=== PATIENT | female | born 1945 | race Caucasian/White ===

== ENCOUNTER 2018-03-28 19:14 | Inpatient (IN) | payer OTHER ==
[~2018-03-28] VITALS: Ht 177.8 cm; Wt 113.4 kg
[~2018-03-28 19:14] MED LIST: ASPI-515; ATOR40TA; BUPR-173 PO; GABAPENTIN PO; GEMFIBROZIL PO; GINK60CA PO; HYDR-3307 PO; IRON1CAP3; LOSARTAN PO; MAGN400O7 PO; METF500T5 PO; METFORMIN PO; METH750T87 PO; MULT1CAP19 PO; SENN1TAB7 PO; ST. JOHN'S WORT PO; TIZA4CAP2; TRAM-385 PO; TRAZODONE PO; VENLAFAXINE PO; [UNRECOGNIZED DRUG - OTHER] PO
[2018-03-28] MEDS ORDERED: TRAZ150T62 PO (19:59)
[2018-03-28] MEDS ORDERED: MELO15TA24 PO (19:59)
[2018-03-28] MEDS ORDERED: PROMETHAZINE 25 MG/ML, 1ML IM ONE (20:00)
[2018-03-28] MEDS ORDERED: SODIUM CHLORIDE 0.9% 1,000ML IVBOLUS ONE ×2 (20:00→22:30)
[2018-03-28] MEDS ORDERED: GABA300C10 PO (20:04)
[2018-03-28] MEDS ORDERED: PROMETHAZINE 25 MG/ML, 1ML ONE (20:07)
[2018-03-28 20:14] LABS: MEAN CORPUSCULAR HGB CONC 33.9 g/dL (32.4-35.8); MEAN CORPUSCULAR VOLUME 91.4 fL (80-100); MEAN PLATELET VOLUME 8.4 fL (7.4-10.4); PLATELET COUNT 343 x10^3/uL (130-400); RED BLOOD COUNT 5.22 x10^6/uL (3.82-5.3); RED CELL DISTRIBUTION WIDTH 13.1 % (9.6-15.2)
[2018-03-28 20:19] LABS: PROTHROMBIN TIME 10.3 Seconds (9.6-11.5)
[2018-03-28 20:23] LABS: ALANINE AMINOTRANSFERASE 15 U/L (12-78); ALBUMIN 3.9 g/dL (3.4-5.0); ANION GAP 11 mmol/L (5-15); CALCIUM 10.5 mg/dL (8.5-10.1); CHLORIDE 100 mmol/L (98-107)
[2018-03-28 20:26] LABS: ALKALINE PHOSPHATASE 109 U/L (45-117); BILIRUBIN,TOTAL 0.5 mg/dL (0.2-1.0); TOTAL PROTEIN 8.3 g/dL (6.4-8.2)
[2018-03-28] MEDS ORDERED: LISI-170 PO (20:32)
[2018-03-28 20:38] LABS: BASOPHILS # (AUTO) 0.15 x10^3/uL (0-0.1); BASOPHILS % (AUTO) 1 % (0-1); EOSINOPHILS # (AUTO) 0.07 x10^3/uL (0-0.4); EOSINOPHILS % (AUTO) 0 % (1-7); LYMPHOCYTES % (AUTO) 11 % (22-44); MD SCAN; MONOCYTES # (AUTO) 1.11 x10^3/uL (0.2-0.8); MONOCYTES % (AUTO) 6 % (2-9); NEUTROPHILS # (AUTO) 14.87 x10^3/uL (1.8-6.8); NEUTROPHILS % (AUTO) 82 % (42-75)
[2018-03-28 21:59] LABS: MICROSCOPIC AUTO
[2018-03-28 22:04] LABS: CULTURE INDICATED? YES
[2018-03-28] MEDS ORDERED: CIPROFLOXACIN/PMX 400MG/200ML 200 ML IV ONE (22:30)
[2018-03-28] MEDS ORDERED: METRONIDAZOLE PMX 500MG/100ML 100 ML IV ONE (22:30)
[2018-03-28] MEDS ORDERED: METRONIDAZOLE PMX 500MG/100ML 100 ML ONE (22:35)
[2018-03-28] MEDS ORDERED: CIPROFLOXACIN/PMX 400MG/200ML 200 ML ONE (22:36)
[2018-03-28] MEDS ORDERED: BISACODYL 10 MG SUPP PR PRN (23:30)
[2018-03-28] MEDS ORDERED: ONDANSETRON 2MG/ML, 2ML IVPush PRN (23:30)
[2018-03-28] MEDS ORDERED: ENALAPRILAT 1.25 MG/ML, 2ML IVPush PRN (23:30)
[2018-03-28] MEDS ORDERED: hydrALAzine 20 MG/ML, 1ML IVPush PRN (23:30)
[2018-03-28] MEDS ORDERED: DOCUSATE 100 MG CAPSULE PO PRN (23:30)
[2018-03-28] MEDS ORDERED: HYDROcodone/APAP 5/325 TABLET PO PRN (23:30)
[2018-03-28] MEDS ORDERED: ONDANSETRON ODT 4 MG PO PRN (23:30)
[2018-03-28 23:53] VITALS: BP 130/76
[2018-03-29] MEDS: SODIUM CHLORIDE 0.9% 1,000 ML IV SCH ×2 (00:28→09:24)
[2018-03-29] MEDS ORDERED: TRAZODONE 150MG TABLET PO SCH ×2 (00:30→21:00)
[2018-03-29] MEDS: metroNIDAZOLE 500 MG TABLET PO SCH ×2 (00:47→09:24)
[2018-03-29] MEDS: HEPARIN 5,000 UNITS/ML, 1ML SQ SCH ×2 (00:48→09:24)
[2018-03-29 02:24] VITALS: BP 107/56
[2018-03-29 05:48] LABS: ANION GAP 8 mmol/L (5-15); CALCIUM 8.6 mg/dL (8.5-10.1); CHLORIDE 105 mmol/L (98-107)
[2018-03-29 05:50] LABS: BASOPHILS # (AUTO) 0.04 x10^3/uL (0-0.1); BASOPHILS % (AUTO) 1 % (0-1); EOSINOPHILS % (AUTO) 1 % (1-7); LYMPHOCYTES # (AUTO) 1.79 x10^3/uL (1-3.4); LYMPHOCYTES % (AUTO) 22 % (22-44); MD NO; MEAN CORPUSCULAR HEMOGLOBIN 30.9 pg (27.0-34.8); MEAN CORPUSCULAR VOLUME 90.9 fL (80-100); MEAN PLATELET VOLUME 7.8 fL (7.4-10.4); MONOCYTES # (AUTO) 0.51 x10^3/uL (0.2-0.8); MONOCYTES % (AUTO) 6 % (2-9); NEUTROPHILS # (AUTO) 5.88 x10^3/uL (1.8-6.8); NEUTROPHILS % (AUTO) 71 % (42-75); PLATELET COUNT 218 x10^3/uL (130-400); RED BLOOD COUNT 3.93 x10^6/uL (3.82-5.3); RED CELL DISTRIBUTION WIDTH 12.8 % (9.6-15.2)
[2018-03-29 05:51] LABS: CREATININE 1.23 mg/dL (0.55-1.02)
[2018-03-29 06:46] VITALS: BP 104/58
[2018-03-29] MEDS ORDERED: GABAPENTIN 300 MG CAPSULE PO SCH (09:00)
[2018-03-29] MEDS ORDERED: OMEPRAZOLE 20 MG CAPSULE.DR PO SCH (09:30)
[2018-03-29] MEDS ORDERED: CIPROFLOXACIN/PMX 400MG/200ML 200 ML IV SCH (10:30)
[2018-03-29 12:22] VITALS: BP 107/62
[2018-03-29] MEDS ORDERED: NITR100C56 PO (13:57)
[2018-03-29] MEDS ORDERED: FAMOTIDINE 20 MG TABLET PO SCH (21:00)
== END 2018-03-29 15:38 | disposition home or self-care (01) | DRG 871 ==
LOC: ED 22:50 → EDIP 22:51 → 3NE 03-29 → DCLOUNGE 03-29 15:27
PROVIDERS: ADMIT Family Medicine; ATTEND Family Medicine
PROC: 0T9B70Z Drainage of Bladder with Drainage Device, Via Natural or Artificial Opening (ICD-10-PCS; principal; 2018-03-28)
DX: A41.9 Sepsis, unspecified organism (principal); N17.0 Acute kidney failure with tubular necrosis; E87.2 Acidosis; N39.0 Urinary tract infection, site not specified; I88.0 Nonspecific mesenteric lymphadenitis; A08.4 Viral intestinal infection, unspecified; E11.9 Type 2 diabetes mellitus without complications; E78.5 Hyperlipidemia, unspecified; E86.0 Dehydration; I10 Essential (primary) hypertension; K29.70 Gastritis, unspecified, without bleeding; F32.9 Major depressive disorder, single episode, unspecified; G89.29 Other chronic pain; M54.9 Dorsalgia, unspecified; Z88.1 Allergy status to other antibiotic agents; Z86.14 Personal history of Methicillin resistant Staphylococcus aureus infection; Z87.891 Personal history of nicotine dependence; Z88.2 Allergy status to sulfonamides; Z88.8 Allergy status to other drugs, medicaments and biological substances; Z90.49 Acquired absence of other specified parts of digestive tract
CPT/HCPCS: 36415; 74021; 74176; 80048; 80053; 81001; 83605; 83690; 84484; 85025; 85610; 87040; 87086; 93005; 96361; 96372; 96374; 99285; J0744; J1644; J2550; J7030

== ENCOUNTER → 2019-01-01 | Outpatient (CLI) | payer MEDICARE ==
[~2019-01-01] MED LIST changes: +FENO145T32 PO; +GABA300C10 PO; +GLIP5TAB10 PO; +LINA5TAB PO; +LISI-170 PO; +MELO15TA24 PO; +METF500T17 PO; -METF500T5 PO; +NITR100C56 PO; +SENN-177 PO; -SENN1TAB7 PO; +TRAZ150T62 PO; +Trintellix PO
== END | disposition home or self-care (01) ==
LOC: STAR 12:48
PROVIDERS: ATTEND Internal Medicine
DX: K59.00 Constipation, unspecified (principal); Z88.8 Allergy status to other drugs, medicaments and biological substances; Z85.9 Personal history of malignant neoplasm, unspecified
CPT/HCPCS: 93005

== ENCOUNTER 2019-01-07 10:21 | Day surgery (SDC) | payer MEDICARE ==
[~2019-01-07] VITALS: Ht 177.8 cm; Wt 109.0 kg
[2019-01-07] MEDS ORDERED: LACTATED RINGERS 1,000 ML IV SCH (10:35)
[2019-01-07 11:12] VITALS: BP 143/78
[2019-01-07] MEDS ORDERED: PROPOFOL 10 MG/ML, 20ML ONE (12:38)
[2019-01-07] MEDS ORDERED: OXYcodone 5 MG/5 ML ORAL.SOL UDC PO PRN (13:30)
[2019-01-07] MEDS ORDERED: ONDANSETRON 2MG/ML, 2ML IV PRN (13:30)
[2019-01-07] MEDS ORDERED: ONDANSETRON ODT 8 MG PO PRN (13:30)
[2019-01-07] MEDS ORDERED: FENTANYL PF 100 MCG/2ML IV PRN (13:30)
[2019-01-07] MEDS ORDERED: ACETAMINOPHEN 325 MG TABLET PO PRN (13:30)
== END 2019-01-07 14:40 | disposition home or self-care (01) ==
LOC: OUT 10:21
PROVIDERS: ATTEND Internal Medicine
DX: D12.0 Benign neoplasm of cecum (principal); K57.30 Diverticulosis of large intestine without perforation or abscess without bleeding; K64.8 Other hemorrhoids; E11.9 Type 2 diabetes mellitus without complications; Z79.4 Long term (current) use of insulin; Z88.1 Allergy status to other antibiotic agents; Z88.8 Allergy status to other drugs, medicaments and biological substances
CPT/HCPCS: 45385; 82962; 88305; J2704; J7120